=== PATIENT | male | born 1975 | race Caucasian/White ===

== ENCOUNTER → 2016-08-21 | Outpatient (CLI) | payer BC ==
--- NOTE | 2016-08-21 10:53 | DI ---
Indication: ITS.REASON: M25.562 LEFT KNEE PAIN PROCEDURE: MRI KNEE LEFT W/O CONTRAST: Encounter: Initial Comparison: None Technique: Multiplanar multisequence MR imaging of the left knee was performed without contrast. Findings: The lateral meniscus shows some fraying of the posterior horn undersurface. Complex tear of the posterior horn medial meniscus. ACL graft appears intact. PCL is maintained. The MCL and lateral collateral ligament complex are intact. The extensor mechanism is normal. No acute fracture. Bone marrow signal intensity is normal. The cartilage of the lateral compartment shows some mild thinning but no full-thickness defect. Medial compartment cartilage is maintained. Patellofemoral compartment cartilage is thinned in the medial facet. No joint effusion. Small Bakers cyst. Muscular signal intensity is normal. Impression: 1. Posterior horn medial meniscal tear. 2. Mild chondromalacia. .
== END ==
LOC: IMA 09:28
PROVIDERS: ATTEND Orthopaedic Surgery
DX: S83.232A Complex tear of medial meniscus, current injury, left knee, initial encounter (principal); X58.XXXA Exposure to other specified factors, initial encounter; Y93.9 Activity, unspecified; Y92.9 Unspecified place or not applicable; Y99.9 Unspecified external cause status; M22.42 Chondromalacia patellae, left knee; M25.562 Pain in left knee

== ENCOUNTER 2016-09-10 06:29 | Day surgery (SDC) | payer BC ==
[2016-09-10] VITALS (19 sets, daily range): BP systolic 97–136; BP diastolic 54–92; PULSE 68–86; RESP 10–20; TEMP 97.3–98.3; O2SAT 91–99; Ht 182.9 cm; Wt 111.7 kg
[~2016-09-10] VITALS: Ht 182.9 cm; Wt 111.7 kg
--- OUTSIDE RECORDS SUMMARY | 2016-09-10 06:34 | XMS REPORT | Continuity of Care Document ---
Author Author Juan Jose Miller MD [facility] Ambulatory Address [address] [place] [address] Phone Care Team Providers Care Telephone Collector Name Role Phone Juan Jose Miller PP Unavailable Payers Payer name Insurance type Covered libertarian ID Authorization(s) Unknown Problems Condition Effective Dates (start - stop) Clinical Status Influenza Vaccine - Depression - *Chronic Sleep disturbance - *Chronic Esophageal spasm - *Chronic Sleep Apnea, Obstructive - Uncertain Family History Family Member Diagnosis Age At Onset Status Father (Unknown) Allergies Yes Mother (Unknown) Mental illness Yes Mother (Unknown) Irritable bowel disease Yes Mother (Unknown) Depression Yes Father (Unknown) Hyperlipidemia Yes Social History Social History Element Description Quantity Unknown Allergies, Adverse Reactions, Alerts Substance Reaction Severity Status Unknown Medications Medication Instructions Dosage Effective Dates (start - stop) Status citalopram 10 mg tablet take 1 tablet (10MG) by oral route every day 10 MG - Active Lipitor 10 mg tablet take 1 tablet (10MG) by oral route every day 10 MG - Active Immunizations Vaccine Date Status Comments Fluzone Adult QIV completed Tdap completed - Completed reason: source unspecified Results Test Name Date and Time Measure Units Reference Range Abnormal Flag Comments Panel Description: Chemistry Profile Glucose 09:20:00 111 mg/dL 70-99 H BUN 09:20:00 17 mg/dL 9-21 Creatinine 09:20:00 1.15 mg/dL 0.72-1.25 Calcium 09:20:00 10.2 mg/dL 8.9-10.5 Sodium 09:20:00 141 mEq/L 135-144 Potassium 09:20:00 4.5 mEq/L 3.5-5.2 Chloride 09:20:00 108 mEq/L 99-111 CO2 09:20:00 25 mEq/L 23-31 Albumin 09:20:00 4.5 g/dL 3.5-5.0 Bilirubin Total 09:20:00 0.5 mg/dL 0.2-1.2 Alkaline Phosphatase 09:20:00 88 U/L 40-150 Protein 09:20:00 7.5 g/dL 6.4-8.3 ALT (SGPT) 09:20:00 43 U/L 0-55 AST (SGOT) 09:20:00 20 U/L 5-34 Anion Gap 09:20:00 8 3-20 Globulin 09:20:00 3.0 g/dL 1.8-4.0 Testing performed at [facility] [address] [address] Flexible Nanny Mati Lewis MD Panel Description: Lipid Profile-[facility] Cholesterol 09:20:00 255 mg/dL 0-199 H Triglycerides 09:20:00 202 mg/dL 0-149 H HDL Cholesterol 09:20:00 33 mg/dL 40-84 L LDL Cholesterol 09:20:00 182 mg/dL 0-130 H VLDL Cholesterol 09:20:00 40 mg/dL 0-28 H Cardiac Risk 09:20:00 7.7 0.0-5.7 H Testing performed at [facility] [address] [place], [place] [address] Flexible Nanny Mati Lewis MD Panel Description: Non-HDL Cholesterol-[facility] Non-HDL Cholesterol 09:20:00 222 mg/dL 0-159 H Testing performed at [facility] [address] [facility] [address] Flexible Nanny Mati Lewis MD Panel Description: TSH-[facility] TSH 09:20:00 2.49 uIU/mL 0.35-4.94 Testing performed at [facility] [address] [facility] [address] Flexible Nanny Mati Lewis MD Panel Description: EGFR-[facility] eGFR 09:20:00 >60 mL/min >60 Multiply eGFR results by 1.21 for race.Testing performed at [facility] [facility] [address] Flexible Nanny Mati Lewis MD Vital Signs Date / Time: Height Weight Pulse Rate Blood Pressure Temperature /08:34:00 72.25 in 246.00 lbs 76 /min 118/84 mm[Hg] 96.2 F Procedures Procedure Date FLU VAC NO PRSV 4 SUMAN 3 YRS+ ADMINISTRATION OF FLU SHOT Encounters Encounter Location Date Patient Visit [facility] Patient Visit [facility] Patient Visit [facility] Advance Directives Directive Effective Date Unknown
--- OUTSIDE RECORDS SUMMARY | 2016-09-10 06:34 | XMS REPORT | Continuity of Care Document ---
Author Author [facility] Organization [facility] Address Unknown Phone Unavailable Allergies Active Description Code Type Severity Reaction Onset Reported/Identified Relationship to Patient Clinical Status Yes No Known Medication Allergies NKMA N/A N/A 10/27/2013 Medications Problems Procedures Results Test Result Range Influenza A and B - 08/22/16 11:03 Influenza A Negative NA Negative Influenza B Negative NA Negative CBC With Platelet and Differential - 08/27/16 15:26 Absolute Basophils 0.08 10*3/uL 0.00- 0.20 Absolute Eosinophils 0.15 10*3/uL 0.00- 0.50 Absolute Lymphocytes 3.38 10*3/uL 0.80- 3.30 Absolute Monocytes 1.09 10*3/uL 0.30- 1.00 Absolute Neutrophils 5.03 10*3/uL 1.90- 7.00 Basophils 1 % 0-2 Eosinophils 2 % 0-4 HCT 45.8 % 42.0-52.0 HGB 15.0 g/dL 14.0-18.0 Immature Granulocytes 0.9 % 0.0-1.0 Lymphocytes 34 % 20-46 MCH 29.0 pg 27.0-32.0 MCHC 32.8 g/dL 32.0-36.0 MCV 88.4 fL 82.0-99.0 Monocytes 11 % 4-11 MPV 9.3 fL 8.8-14.8 Neutrophils 51 % 51-75 Platelet Count 331 K/uL 150-400 RBC 5.18 10*6/uL 4.60-6.20 RDW 12.4 % 11.5-14.5 WBC 9.8 K/uL 4.8-10.8 eGFR - 08/27/16 15:26 eGFR >60 mL/min >60 Encounters ACCT No. Visit Date/Time Discharge Status Pt. Type Provider Facility Loc./Unit Complaint [id number] 08/18/2013 16:20:00 08/18/2013 23 :59:59 CLS Outpatient [id number] 07/07/2013 14:15:00 07/07/2013 23 :59:59 CLS Outpatient [id number] 07/06/2013 08:24:00 07/06/2013 23 :59:59 CLS Outpatient
--- OUTSIDE RECORDS SUMMARY | 2016-09-10 06:34 | XMS REPORT | Referral Summary ---
Author Author [facility] Organization [facility] Address Unknown Phone Unavailable Care Team Providers Care Furnace Mason Name Role Phone Milagro Miller Primary Care Physician [phone] Encounter Date(s): 09/26/15 - 09/26/15 [facility] [address] [place] [id number] Discharge Diagnosis: Knee pain Discharge Disposition: 01-Home or Self Care Attending Physician: Juan Jose Miller MD Admitting Physician: Juan Jose Miller MD Vital Signs Most recent to 1 oldest [Reference Range]: Temperature Tympanic 36.0 degC [36.6-38.1 degC] *LOW* (09/26/15 11:37 AM) Peripheral Pulse 84 bpm Rate [60-100 bpm] (09/26/15 11:37 AM) Respiratory Rate 14 br/min [14-20 br/min] (09/26/15 11:37 AM) Blood Pressure 130/92 mmHg [90-140/60-90 mmHg] (09/26/15 11:37 AM) Problem List Condition Effective Dates Status Health Status Informant Allergic Active rhinitis(Confirmed) Depression(Confirmed Active ) Obesity(Confirmed) Active patient Allergies, Adverse Reactions, Alerts No Known Medication Allergies Medications meloxicam 15 mg oral tablet 15 mg 1 tabs, Oral, Daily, # 30 tabs, 1 Refill(s), Pharmacy: [facility] # [id number], 1 tabs Oral Daily Start Date: 09/26/15 Status: Ordered Results No data available for this section Immunizations Vaccine Date Refusal Reason tetanus/diphth/pertuss (Tdap) adult/adol 05/25/09 influenza virus vaccine, live 07/06/13 Procedures No data available for this section Social History Social History Type Response Smoking Status Never smoker Assessment and Plan Extracted from: Title: Office Visit Note Author: Juan Jose Miller MD Date: 09/26/15 Assessment/Plan Knee pain I think he has atendinitis over the insertion of the lateral hamstrings. I cannot rule out Veronica's cystalthough there is not a palpable mass present. I've recommendeda round ofmeloxicam 15 mg daily for the next 2-4 weeks. I encouraged him tothe up and active but not do any excessive activity. If it's no better we may need to considerfurther imaging and evaluation. He'll keep me posted on how he's doing. Ordered: Office Visit Level 3 Est [id number] Orders: meloxicam, 15 mg 1 tabs, Oral, Daily, # 30 tabs, 1 Refill(s), Pharmacy : [facility] #[id number], 1 tabs Oral Daily
--- OUTSIDE RECORDS SUMMARY | 2016-09-10 06:34 | XMS REPORT | Continuity of Care Document ---
Author Author Danial Lane MD [facility] Address [address] [place] [address] Phone Care Team Providers Care Vertica Architect Name Role Phone Juan Jose Miller PP Unavailable Payers Payer name Insurance type Covered alliance party ID Authorization(s) Unknown Problems Condition Effective Dates (start - stop) Clinical Status Sleep Apnea, Obstructive - Uncertain Influenza Vaccine - Depression - *Chronic Sleep disturbance - *Chronic Esophageal spasm - *Chronic Family History Family Member Diagnosis Age At [...] Measure Units Reference Range Abnormal Flag Comments Unknown Vital Signs Date / Time: Height Weight Pulse Rate Blood Pressure Temperature /14:16:00 72.25 in 253.00 lbs 79 /min 132/92 mm[Hg] Procedures Procedure Date Unknown Encounters Encounter Location Date Patient Visit [facility] Patient Visit [facility] Patient Visit [facility] Advance Directives Directive Effective Date Unknown
--- OUTSIDE RECORDS SUMMARY | 2016-09-10 06:34 | XMS REPORT | Continuity of Care Document ---
Author Author Danial Lane MD [facility] Ambulatory Address [address] [place] [address] Phone Care Team Providers Care Furniture Polisher Name Role Phone Juan Jose Miller PP Unavailable Payers Payer name Insurance type Covered constitution party ID Authorization(s) Unknown Problems Condition Effective Dates (start - stop) Clinical Status Sleep Apnea, Obstructive - *Symptomatic Influenza Vaccine - Depression - *Chronic Sleep [...] Height Weight Pulse Rate Blood Pressure Temperature /16:22:00 72.25 in 234.00 lbs 78 /min 122/86 mm[Hg] Procedures Procedure Date Unknown Encounters Encounter Location Date Patient Visit [facility] Patient Visit [facility] Patient Visit [facility] Patient Visit [facility] Advance Directives Directive Effective Date Unknown
[2016-09-10] MEDS ORDERED: LIDOCAINE 1% (10mg/ml) 2ml SDV INJ ONE (07:00)
[2016-09-10] MEDS ORDERED: IBUP-1724 PO (07:14)
[2016-09-10] MEDS: LR 1,000 ML IV SCH ×2 (07:22→10:58)
[2016-09-10] MEDS ORDERED: CEFAZOLIN 1 GRAM INJECTION IV ONE ×2 (07:30→08:00)
--- NOTE | 2016-09-10 07:46 | ANESPREOP ---
Anesthesia Record Date and Time DATE: 09/10/16 TIME: 07:43 Pre-Op Diagnosis left knee meniscus tear Proposed Surgical Procedure LT KNEE SCOPE NPO since: 2199 Allergies: Coded Allergies: No Known Allergies (Unverified , 09/10/16) Ht/Wt/BMI Height: 6 ' 0.00 " Weight: 111.700 kg BMI: 33.4 kg/m2 Vital Signs Date Time Temp Pulse Resp B/P Pulse Ox O2 Delivery O2 Flow Rate FiO2 09/10/16 06:54 98.3 78 16 136/92 96 Room Air Medications Inpatient Medications Current Medications Medications (Trade) Dose Ordered Sig/Rahel Start Time Stop Time Status Last Admin Dose Admin Lactated Ringer's (Lactated Ringers) 1,000 ml @ 50 mls/hr Q20H 09/10/16 07:00 09/10/16 07:22 50 MLS/HR Ibuprofen (Ibuprofen) 200 Mg Tablet, 1 TAB PO Q4H PRN for PAIN, (Reported) Last Taken: on 09/05/16 Currently on Beta Eddie: No Medical/Surgical History Anesthesia PMH: Reports: Cardiac Arrythmia (hx of gomez parkinson white - ablation 22 years ago), Sleep Apnea (DOES NOT USE C PAP), Denies: *Diabetes, Anesthesia Reactions (NO AIRWAY ISSUES), Arthritis, Cancer, Clotting Problems, Glaucoma, Malignant Hyperthermia, Renal Disease, Thyroid Disease Smoking Status: Never smoker Has pt. smoked today?: No Use Chewing Tobacco?: No Substance Use Type: does not use Alcohol Intake: none Past Surgical History Orthopedic Surgeries: Yes - LT KNEE ACL REPLACEMENT Abdominal Surgeries: Genitourinary Surgeries: Cardiac Surgeries: Yes - ABLATION Endocrine Surgeries: Reproductive Surgeries: Yes Neurological Surgeries: Ear Surgeries: Nose Surgeries: Throat Surgeries: Yes - TONSILLECTOMY Other Surgeries: Anesthesia Adverse Reactions: FOUND none Family Hx of Anesthesia Advers: none Hx of Motion Sickness: No Pertinent Findings EKG Rhythm: Sinus Rhythm Physical Exam Respiratory: Lungs clear Cardiovascular: FOUND Regular rate, rhythm, FOUND No murmur Airway Assessment Mallampati Score: I TMD: 3 Fingerbreadths Neck Extension: Good Teeth: Chipped Teeth/Crowns Overall Assessment: No Airway Concerns ASA: 2 Plan Anesthesia Plan: LMA Discussion Discussed risks/options/alternatives of anesthesia and questions answered. Patient consents. Nursing pain assessment noted. Present: Family Member Attestation Statement Prior to the delivery of any anesthetic medication, I examined the patient, developed the plan, obtained the patient's consent and discussed the risk and benefits of the procedure with the patient/guardian. ALBERTO BASSETT I CHILLER HAND Sep 10, 2016 07:45
[2016-09-10] MEDS ORDERED: MEPERIDINE 100 mg/ml VIAL ONE (07:55)
[2016-09-10] MEDS ORDERED: BUPIVACAINE 0.25% (2.5mg/ml) INJ 30ml SDV ONE (07:56)
[2016-09-10] MEDS ORDERED: LIDOCAINE (2%) 100 MG/5 ML PF SYRINGE IV ONE (07:57)
[2016-09-10] MEDS ORDERED: FENTANYL 100mcg/2ml INJECTION ONE ×2 (07:57→08:48)
[2016-09-10] MEDS ORDERED: PROPOFOL 200mg 20 ML IV ONE (07:57)
[2016-09-10] MEDS ORDERED: KETAMINE 500mg/10ml INJECTION ONE (07:59)
[2016-09-10] MEDS ORDERED: ONDANSETRON 4mg/2ml INJECTION ONE (08:37)
--- NOTE | 2016-09-10 09:07 | PDPROCED ---
Immediate Operative Note DATE: 09/10/16 TIME: 09:04 Preop Diagnosis: LEFT KNEE MEDIAL MENISCAL TEAR Postop Diagnosis: Left knee medial meniscal tear, primary OA Surgical Procedures: L Knee Arthroscopy (PMM, limited synovectomy, chondroplasty LFC, trochlea) Surgeon: Antonio Oil Lease Broker: JAI Alva Anesthesia: General Complications: none Estimated Blood Loss see anesthesia YONNY BENNETT Sep 10, 2016 09:07
--- NOTE | 2016-09-10 09:54 | NUR ---
REPORT REPORT GIVEN TO Marycruz PAUL RN
[2016-09-10] MEDS ORDERED: ONDANSETRON 4mg/2ml INJECTION IV PRN (10:00)
--- NOTE | 2016-09-10 10:55 | NUR ---
STATUS PATIENT ASSISTED TO SIDE OF BED, C/O FEELING DIZZY AND NAUSEATED. WILL NOTIFY ALBERTO BASSETT CRNA. PATIENT ASSISTED TO BED. WILL CONTINUE TO MONITOR.
--- NOTE | 2016-09-10 10:58 | NUR ---
STATUS REGLAN 10 MG IV ADMINISTERED PER ORDER FOR NAUSEA. SEE EMAR.
[2016-09-10] MEDS ORDERED: SCOPOLAMINE 1.5 MG PATCH TD ONE (11:00)
[2016-09-10] MEDS ORDERED: METOCLOPRAMIDE 10mg/2ml INJECTION IV ONE (11:00)
--- NOTE | 2016-09-10 11:05 | NUR ---
STATUS: PATIENT CONTINUES TO C/O FEELING DIZZY. ORDER RECEIVED FOR SCOPOLAMINE PATCH. PATCH PLACED BEHIND RIGHT EAR. SEE EMAR. WILL CONTINUE TO MONITOR.
[2016-09-10] MEDS ORDERED: MELO7.5T12 PO (11:23)
[2016-09-10] MEDS ORDERED: HYDR-3989 PO (11:23)
[2016-09-10] MEDS ORDERED: ONDA4TAB4 PO (11:23)
--- NOTE | 2016-09-10 11:51 | ANESPO ---
Post-Op Note Date 09/10/16 Time: 11:51 Status Pt Participated in Evaluation: Pt participated in person Vital Signs Date Time Temp Pulse Resp B/P Pulse Ox O2 Delivery O2 Flow Rate FiO2 09/10/16 11:45 74 20 134/74 97 Room Air 09/10/16 10:30 3.00 09/10/16 09:36 97.8 Respiratory Function: Airway patent, Regular respirations Cardiovascular Function: Regular pulse Mental Status: Alert/oriented Pain Level Intensity: 2 Hydration: Taking po fluids Complications during Recovery None apparent Follow-Up Instructions Instructions Per Surgeon ALBERTO BASSETT CRNA Sep 10, 2016 11:51
--- NOTE | 2016-09-10 13:37 | OPNOTEF ---
DATE OF OPERATION 09/10/2016 PREOPERATIVE DIAGNOSIS 1. Left knee posterior horn medial meniscus tear. 2. Left knee lateral compartment chondromalacia. POSTOPERATIVE DIAGNOSES 1. Left knee posterior horn medial meniscus tear . 2. Left knee partial tear ACL graft. 3. Left knee grade 4 chondromalacia lateral femoral condyle. 4. Grade 2-3 chondromalacia femoral trochlea and patella. 5. Grade 2-3 chondromalacia medial femoral condyle. PROCEDURE 1. Left knee arthroscopic partial medial meniscectomy. 2. Left knee arthroscopic limited synovectomy with fat pad debridement and scar tissue resection anterior compartment. 4. Left knee arthroscopic debridement ACL. 5. Left knee shaving chondroplasty medial femoral condyle, lateral femoral condyle and femoral trochlea. SURGEON Jhonatan Alvarez MD COATING TECHNICIAN Rojelio Persaud PA-C ANESTHESIA General FLUIDS Please refer to Anesthesia chart. COMPLICATIONS None. TOURNIQUET TIME. Please refer to Anesthesia chart. DESCRIPTION OF PROCEDURE Patient was identified in the preoperative holding area. The operative extremity was identified and appropriately marked. Risks, benefits, alternatives and potential complications were discussed and informed consent was obtained. The patient was taken to the operating theatre, placed supine on the operating table. Appropriate cardiorespiratory monitors were applied. General anesthesia was induced. Tourniquet was applied high on the left thigh though not yet inflated. The left lower extremity was sterilely prepped and draped in the usual fashion. Surgical time-out was performed, confirmed with myself, the prop attendant and circulating nurse. Preoperative antibiotics were given. Examination under anesthesia revealed full passive range of motion. He had a trace effusion. No warmth or erythema. Well-healed surgical incisions from prior ACL reconstruction. He had a 2A Prasanth's with an endpoint and did have a pivot glide. Anterior drawer was grade 1 with endpoint, stable to varus and valgus stress. Posterior drawer, stable. The leg was elevated and the tourniquet was inflated. A standard inferolateral portal was established. The arthroscope was inserted and the knee was insufflated with saline. Needle localization was utilized to establish an inferomedial portal and diagnostic examination ensued. Scar tissue encompassed the fat pad and anterior compartment, making visualization of the notch and the patellofemoral joint difficult. A shaver was introduced and a limited synovectomy of the anterior compartment was performed. We were then able to visualize the patellofemoral joint. There was noted to be grade 3/4 chondral lesion in the medial femoral condyle. This area was debrided with a suction shaver. Patella otherwise tracked centrally and showed some diffuse grade 2 change. There was some spurring over the medial facet and the medial ridge of the femoral trochlea anteriorly. Medial gutter was free of loose bodies or debris. Medial compartment was entered, noting grade 2 and 3 chondromalacia to the medial femoral condyle. There was a complex tear of the posterior horn of the medial meniscus. A series of leonel and biters were used to resect this to a stable meniscal rim. Tibial plateau showed softening of the cartilage but no large chondral defects. The intercondylar notch was then visualized. There was noted to be a cyclops type lesion in the anterior aspect of the notch. This was debrided. Probing of the ACL noted some laxity but still attachment at both the femoral and tibial sides. Intraoperative Prasanth's and anterior drawer showed an endpoint but 3-4 mm of excursion. The PCL was intact. The knee was then moved to a figure-four position and the lateral compartment was entered. The lateral femoral condyle showed hard dense bone exposed on the condyle itself. It almost appeared that this had been microfractured in the past and had overgrowth. Surrounding cartilage showed softening and some flaps which were debrided with a shaver. Tibial side showed softening and grade 2 fissuring diffusely. The meniscus of the lateral side was found to be intact. Lateral gutter was found to be free of loose bodies or debris. Suprapatellar pouch was free of loose bodies or debris. The knee was then copiously lavaged, irrigated and drained. All arthroscopic instruments were removed. Portals were closed with nylon sutures. Marcaine was injected around the portal sites and Marcaine cocktail in the joint. Sterile dressings were applied followed by an Hakeem bandage. Tourniquet was deflated. The patient was awakened from anesthesia and taken to the recovery room in stable and satisfactory condition. CHARITY
[2016-09-13] MEDS ORDERED: SCOPOLAMINE PATCH REMOVAL TD ONE (11:15)
== END 2016-09-10 12:00 | disposition home or self-care (01) ==
LOC: NSC 06:29
PROVIDERS: ATTEND Orthopaedic Surgery
DX: S83.232A Complex tear of medial meniscus, current injury, left knee, initial encounter (principal); M94.262 Chondromalacia, left knee; T84.410A Breakdown (mechanical) of muscle and tendon graft, initial encounter; G47.30 Sleep apnea, unspecified
CPT/HCPCS: 29881; G0289; J0690; J2175; J2405; J2704; J2765; J3010; J7120; S0020